=== PATIENT | female | born 1940 | race Caucasian/White ===

== ENCOUNTER 2024-05-31 12:42 | Inpatient (IN) | payer MEDICARE, BC ==
[~2024-05-31] VITALS: Ht 175.3 cm; Wt 72.6 kg
[2024-05-31 14:36] LABS: CALCIUM, SERUM 8.7 mg/dL (8.5-10.1); CARBON DIOXIDE 28 mmol/L (21-32); CHLORIDE 108 mmol/L (98-107); CREATININE 1.8 mg/dL (0.6-1.3); GLUCOSE 86 mg/dL (74-106); POTASSIUM 4.7 mmol/L (3.5-5.1); SODIUM SERUM 141 mmol/L (136-145); UREA NITROGEN, BLOOD 18 mg/dL (7-18)
[2024-05-31 14:42] LABS: ALANINE AMINOTRANSFERASE 18 U/L (12-78); ALBUMIN 3.1 g/dL (3.4-5.0); ALCOHOL, BLOOD < 3 mg/dL (0-10); ALKALINE PHOSPHATASE 160 U/L (46-116); ASPARTATE AMINOTRANSFERASE 14 U/L (15-37); BILIRUBIN,DIRECT 0.1 mg/dL (0.0-0.2); BILIRUBIN,TOTAL 0.4 mg/dL (0.2-1.0); TOTAL PROTEIN, SERUM 6.5 g/dL (6.4-8.2)
[2024-05-31 14:43] LABS: ACETAMINOPHEN <10 ug/ml (10-30)
[2024-05-31 14:59] LABS: BASOPHILS # (AUTO) 0.1 K/uL (0.0-0.2); BASOPHILS % (AUTO) 0.7 % (0.0-2.0); EOSINOPHILS # (AUTO) 0.2 K/uL (0.0-0.7); EOSINOPHILS % (AUTO) 3.7 % (0.0-6.0); HEMATOCRIT 39 % (33-45); HEMOGLOBIN 12.7 g/dL (11.5-14.8); LYMPHOCYTES # (AUTO) 1.9 K/uL (0.8-4.8); LYMPHOCYTES % (AUTO) 28.9 % (20.0-44.0); MEAN CORPUSCULAR HEMOGLOBIN 27 PG (26.0-33.0); MEAN CORPUSCULAR HGB CONC 33 g/dl (31.0-36.0); MEAN CORPUSCULAR VOLUME 83 fL (82-100); MONOCYTES # (AUTO) 0.6 K/uL (0.1-1.30); MONOCYTES % (AUTO) 8.9 % (2.0-12.0); NEUTROPHILS # (AUTO) 3.9 K/uL (1.8-8.9); NEUTROPHILS % (AUTO) 57.8 % (43.0-81.0); PLATELET COUNT (AUTO) 238 K/uL (150-450); RED BLOOD CELL COUNT(AUTO) 4.68 MIL/uL (4.0-5.2); RED CELL DISTRIBUTION WIDTH 18.4 % (11.5-15.0); WHITE BLOOD COUNT (AUTO) 6.7 K/uL (4.3-11.0)
[2024-05-31] MEDS ORDERED: CHOL100062 PO (15:31)
[2024-05-31] MEDS ORDERED: HYDR-4303 PO (15:31)
[2024-05-31] MEDS ORDERED: CYAN50009 PO (15:31)
[2024-05-31] MEDS ORDERED: APIX2.5T PO (15:31)
[2024-05-31] MEDS ORDERED: ACET-2030 PO (15:31)
[2024-05-31] MEDS ORDERED: DONE10TA44 PO (15:31)
[2024-05-31] MEDS ORDERED: OMEP20CA15 PO (15:31)
[2024-05-31] MEDS ORDERED: MEMA10TA PO (15:31)
[2024-05-31] MEDS ORDERED: MAGN400O6 PO (15:31)
[2024-05-31] MEDS ORDERED: METO25TA4 PO (15:31)
[2024-05-31] MEDS ORDERED: FERR325T23 PO (15:31)
[2024-05-31] MEDS ORDERED: ALPR0.25 PO (15:31)
[2024-05-31] MEDS ORDERED: ESCI20TA PO (15:31)
[2024-05-31] MEDS ORDERED: BISA10SU11 RC (15:31)
[2024-05-31] MEDS ORDERED: QUET25TA PO (15:31)
[2024-05-31] MEDS ORDERED: FLEC50TA2 PO (15:31)
[2024-05-31] MEDS ORDERED: NA P133E RC (15:31)
[2024-05-31] MEDS ORDERED: SULF1TAB48 PO (15:31)
[2024-05-31] MEDS ORDERED: IPRA42SP BNOSTRILS (15:31)
[2024-05-31] MEDS ORDERED: PROP15DR EACHEYE (15:31)
[2024-05-31 17:35] LABS: APPEARANCE,URINE CLEAR (CLEAR); BILIRUBIN,URINE NEGATIVE (NEGATIVE); BLOOD, URINE 1+ Ery/uL (NEGATIVE); COLOR,URINE YELLOW (YELLOW); KETONES,URINE NEGATIVE (NEGATIVE); LEUKOCYTE ESTERASE ,URINE 2+ (NEGATIVE); NITRITE, URINE NEGATIVE (NEGATIVE); PROTEIN,URINE NEGATIVE (NEGATIVE); UGLUCOSE NEGATIVE (NEGATIVE); UROBILINOGEN,URINE 0.2 EU/dL (0.2)
[2024-05-31 17:45] LABS: AMPHETAMINE, URINE NEGATIVE (NEGATIVE); BARBITURATE, URINE NEGATIVE (NEGATIVE); BENZODIAZEPINE, URINE NEGATIVE (NEGATIVE); CANNABINOID, URINE NEGATIVE (NEGATIVE); COCCAINE, URINE NEGATIVE (NEGATIVE); OPIATE, URINE NEGATIVE (NEGATIVE); PHENCYCLIDINE SCREEN,URINE NEGATIVE (NEGATIVE)
[2024-05-31 18:36] LABS: ADD URINE CULTURE YES; BACTERIA,URINE Few /HPF (None Seen); SQUAMOUS EPITHELIAL CELL,UR Few /HPF (None Seen)
[2024-05-31] MEDS: CIPROFLOXACIN HCL 250 MG TABLET PO ONE (19:30)
[2024-05-31] MEDS ORDERED: CIPROFLOXACIN HCL 500 MG TABLET ONE (20:11)
[2024-05-31] MEDS ORDERED: ACETAMINOPHEN ES 500 MG TABLET PO PRN (21:00)
[2024-05-31] MEDS ORDERED: BISACODYL SUPP (10 MG) 10 MG/SUPP.RECT SUPP.RECT RC PRN (21:00)
[2024-05-31] MEDS ORDERED: NA PHOS,M-B/NA PHOS,DI-BA 1 EA ENEMA RC PRN (21:00)
[2024-05-31] MEDS ORDERED: MAGNESIUM HYDROXIDE 30 ML UDC PO PRN ×2 (21:00→23:00)
[2024-05-31] MEDS: FLECAINIDE ACETATE 50 MG TABLET PO SCH (21:30)
[2024-05-31] MEDS ORDERED: ACETAMINOPHEN 325 MG TABLET PO PRN (23:00)
[2024-05-31] MEDS ORDERED: MAG HYDROX/AL HYDROX/SIMETH 30 ML UDC PO PRN (23:00)
[2024-05-31] MEDS ORDERED: ZOLPIDEM TARTRATE 5 MG TABLET PO PRN (23:00)
[2024-05-31 23:45] VITALS: BP 147/69; TEMP 97.9; O2SAT 99
[2024-06-01] MEDS ORDERED: FLECAINIDE ACETATE (100 MG) 100 MG TABLET PO ONE
[2024-06-01] MEDS: BLOOD SUGAR DIAGNOSTIC 1 EACH STRIP IN ONE (00:03)
[2024-06-01] MEDS: FLECAINIDE ACETATE (100 MG) 100 MG TABLET PO ONE (00:38)
[2024-06-01 07:22] LABS: BASOPHILS % (AUTO) 0.8 % (0.0-2.0); EOSINOPHILS # (AUTO) 0.2 K/uL (0.0-0.7); EOSINOPHILS % (AUTO) 3.8 % (0.0-6.0); HEMATOCRIT 40 % (33-45); HEMOGLOBIN 12.9 g/dL (11.5-14.8); LYMPHOCYTES # (AUTO) 1.4 K/uL (0.8-4.8); LYMPHOCYTES % (AUTO) 28.2 % (20.0-44.0); MEAN CORPUSCULAR HEMOGLOBIN 27 PG (26.0-33.0); MEAN CORPUSCULAR HGB CONC 32 g/dl (31.0-36.0); MEAN CORPUSCULAR VOLUME 84 fL (82-100); MONOCYTES # (AUTO) 0.5 K/uL (0.1-1.30); MONOCYTES % (AUTO) 10.6 % (2.0-12.0); NEUTROPHILS # (AUTO) 2.9 K/uL (1.8-8.9); NEUTROPHILS % (AUTO) 56.6 % (43.0-81.0); PLATELET COUNT (AUTO) 237 K/uL (150-450); RED BLOOD CELL COUNT(AUTO) 4.77 MIL/uL (4.0-5.2); RED CELL DISTRIBUTION WIDTH 18.9 % (11.5-15.0); WHITE BLOOD COUNT (AUTO) 5.1 K/uL (4.3-11.0)
[2024-06-01 07:37] LABS: POTASSIUM 4.1 mmol/L (3.5-5.1)
[2024-06-01 07:50] LABS: CALCIUM, SERUM 8.8 mg/dL (8.5-10.1); CREATININE 1.6 mg/dL (0.6-1.3)
[2024-06-01] MEDS: PANTOPRAZOLE 40 MG TABLET.DR PO SCH (07:50)
[2024-06-01 08:00] VITALS: BP 133/58; TEMP 97.7; O2SAT 95
[2024-06-01] MEDS: FERROUS SULFATE (325 MG) 325 MG/TAB TABLET PO SCH (08:51)
[2024-06-01] MEDS: CHOLECALCIFEROL 1,000 UNIT TABLET (VIT D3) PO SCH (08:51)
[2024-06-01] MEDS: METOPROLOL SUCCINATE 25 MG TAB.SR.24H PO SCH (08:52)
[2024-06-01] MEDS: APIXABAN 2.5 MG TABLET PO SCH (08:54)
[2024-06-01] MEDS: FLECAINIDE ACETATE (100 MG) 100 MG TABLET PO SCH (08:55)
[2024-06-01] MEDS: IPRATROPIUM BROMIDE 0.06% 15 ML NASPR NS SCH (08:58)
[2024-06-01] MEDS: FLECAINIDE ACETATE (100 MG) 100 MG TABLET ONE (09:00)
[2024-06-01] MEDS: CYANOCOBALAMIN 500 MCG TABLET PO SCH (10:24)
[2024-06-01 16:00] VITALS: BP 129/70; TEMP 97.9; O2SAT 98
[2024-06-01 21:47] VITALS: BP 119/62; TEMP 98.5; O2SAT 96
[2024-06-02] MEDS ORDERED: POLYVINYL ALCOHOL 15 ML BOTTLE EACHEYE PRN (07:30)
[2024-06-02 07:40] LABS: BASOPHILS % (AUTO) 0.6 % (0.0-2.0); EOSINOPHILS # (AUTO) 0.1 K/uL (0.0-0.7); EOSINOPHILS % (AUTO) 1.4 % (0.0-6.0); HEMATOCRIT 41 % (33-45); LYMPHOCYTES # (AUTO) 1.4 K/uL (0.8-4.8); LYMPHOCYTES % (AUTO) 22.1 % (20.0-44.0); MEAN CORPUSCULAR HEMOGLOBIN 27 PG (26.0-33.0); MEAN CORPUSCULAR HGB CONC 32 g/dl (31.0-36.0); MEAN CORPUSCULAR VOLUME 84 fL (82-100); MONOCYTES # (AUTO) 0.7 K/uL (0.1-1.30); MONOCYTES % (AUTO) 10.1 % (2.0-12.0); NEUTROPHILS # (AUTO) 4.3 K/uL (1.8-8.9); NEUTROPHILS % (AUTO) 65.8 % (43.0-81.0); PLATELET COUNT (AUTO) 255 K/uL (150-450); RED BLOOD CELL COUNT(AUTO) 4.87 MIL/uL (4.0-5.2); RED CELL DISTRIBUTION WIDTH 18.1 % (11.5-15.0); WHITE BLOOD COUNT (AUTO) 6.5 K/uL (4.3-11.0)
[2024-06-02 07:48] LABS: ALBUMIN 3.3 g/dL (3.4-5.0); BILIRUBIN,TOTAL 0.5 mg/dL (0.2-1.0); CALCIUM, SERUM 8.9 mg/dL (8.5-10.1); CREATININE 1.9 mg/dL (0.6-1.3); MAGNESIUM 2.1 mg/dL (1.8-2.4); PHOSPHORUS 3.4 mg/dL (2.5-4.9); POTASSIUM 4.2 mmol/L (3.5-5.1); TOTAL PROTEIN, SERUM 6.8 g/dL (6.4-8.2)
[2024-06-02 08:00] VITALS: BP 129/62; TEMP 97.7; O2SAT 98
[2024-06-02] MEDS: VENLAFAXINE XR 37.5 MG CAP.SR.24H PO SCH (08:47)
[2024-06-02 16:00] VITALS: BP 120/65; TEMP 98.1; O2SAT 98
[2024-06-02 20:54] VITALS: BP 130/67; TEMP 97.7; O2SAT 96
[2024-06-03] MEDS: ZOLPIDEM TARTRATE 5 MG TABLET PO PRN (03:31)
[2024-06-03 08:10] VITALS: BP 145/77; TEMP 97.8; O2SAT 96
[2024-06-03 10:10] LABS: PTH, INTACT 22 pg/mL (15-65)
[2024-06-03 16:19] VITALS: BP 114/64; TEMP 98.1; O2SAT 95
[2024-06-03 20:30] VITALS: BP 126/72; TEMP 98; O2SAT 97
[2024-06-04 08:00] VITALS: BP 123/62; TEMP 98.1; O2SAT 96
[2024-06-04 16:00] VITALS: BP 111/50; TEMP 98.7; O2SAT 97
[2024-06-04 21:36] VITALS: BP 123/53; TEMP 98.6; O2SAT 95
[2024-06-05 08:00] VITALS: BP 106/63; TEMP 97.8; O2SAT 96
[2024-06-05 10:12] LABS: *SPE A/G RATIO 0.9 (0.7-1.7); *SPE ALPHA-1-GLOBULIN 0.3 g/dL (0.0-0.4); *SPE ALPHA-2-GLOBULIN 0.8 g/dL (0.4-1.0); *SPE BETA GLOBULIN 1.1 g/dL (0.7-1.3); *SPE GLOBULIN, TOTAL 3.5 g/dL (2.2-3.9); *SPE M-SPIKE Not Observed g/dL (Not Observed); *SPE PROTEIN TOTAL 6.5 g/dL (6.0-8.5); *SPEGAMMA GLOBULIN 1.2 g/dL (0.4-1.8)
[2024-06-05] MEDS: ARIPIPRAZOLE 2 MG TABLET PO SCH (10:26)
[2024-06-05 16:14] VITALS: BP 109/96; TEMP 98.2; O2SAT 94
[2024-06-05 19:36] LABS: APPEARANCE,URINE CLOUDY (CLEAR); BILIRUBIN,URINE NEGATIVE (NEGATIVE); BLOOD, URINE NEGATIVE Ery/uL (NEGATIVE); COLOR,URINE YELLOW (YELLOW); KETONES,URINE TRACE mg/dL (NEGATIVE); LEUKOCYTE ESTERASE ,URINE 1+ (NEGATIVE); NITRITE, URINE NEGATIVE (NEGATIVE); PH,URINE 5.5 (5.0-8.0); PROTEIN,URINE NEGATIVE (NEGATIVE); UGLUCOSE NEGATIVE (NEGATIVE); UROBILINOGEN,URINE 0.2 EU/dL (0.2)
[2024-06-05 19:39] LABS: URINE TOTAL PROTEIN 23.6 mg/dL (0-11.9)
[2024-06-05 20:46] VITALS: BP 148/71; TEMP 98; O2SAT 96
[2024-06-05 20:48] LABS: URINE AMORPHOUS URATE Many /HPF (None Seen)
[2024-06-05 20:51] LABS: ADD URINE CULTURE YES; BACTERIA,URINE Rare /HPF (None Seen); CALCIUM OXALATE CRYSTALS,UR Few /HPF (None Seen); RBC,URINE 0-2 /HPF (0-2); SQUAMOUS EPITHELIAL CELL,UR Rare /HPF (None Seen)
[2024-06-05 21:21] LABS: EOSINOPHIL,URINE None Seen
[2024-06-06 08:00] VITALS: BP 163/80; TEMP 98.1; O2SAT 99
[2024-06-06 08:06] LABS: CALCIUM, SERUM 9.2 mg/dL (8.5-10.1); CREATININE 1.3 mg/dL (0.6-1.3); POTASSIUM 3.7 mmol/L (3.5-5.1)
[2024-06-06 08:22] LABS: BASOPHILS % (AUTO) 0.6 % (0.0-2.0); EOSINOPHILS # (AUTO) 0.3 K/uL (0.0-0.7); EOSINOPHILS % (AUTO) 3.8 % (0.0-6.0); HEMATOCRIT 41 % (33-45); HEMOGLOBIN 12.8 g/dL (11.5-14.8); LYMPHOCYTES # (AUTO) 1.7 K/uL (0.8-4.8); LYMPHOCYTES % (AUTO) 24.5 % (20.0-44.0); MEAN CORPUSCULAR HEMOGLOBIN 27 PG (26.0-33.0); MEAN CORPUSCULAR HGB CONC 32 g/dl (31.0-36.0); MEAN CORPUSCULAR VOLUME 84 fL (82-100); MONOCYTES # (AUTO) 0.7 K/uL (0.1-1.30); MONOCYTES % (AUTO) 10.2 % (2.0-12.0); NEUTROPHILS # (AUTO) 4.3 K/uL (1.8-8.9); NEUTROPHILS % (AUTO) 60.9 % (43.0-81.0); PLATELET COUNT (AUTO) 230 K/uL (150-450); RED BLOOD CELL COUNT(AUTO) 4.81 MIL/uL (4.0-5.2); RED CELL DISTRIBUTION WIDTH 18.3 % (11.5-15.0)
[2024-06-06 16:00] VITALS: BP 142/61; TEMP 97.9; O2SAT 96
[2024-06-06 20:00] VITALS: BP 145/71; TEMP 98.2; O2SAT 96
[2024-06-06] MEDS: MIRTAZAPINE 15 MG TABLET PO SCH (21:19)
[2024-06-07 08:00] VITALS: BP 107/59; TEMP 97.9; O2SAT 98
[2024-06-07] MEDS: VENLAFAXINE XR 37.5 MG CAP.SR.24H PO SCH (08:43)
[2024-06-07] MEDS ORDERED: VENLAFAXINE XR 37.5 MG CAP.SR.24H PO SCH (09:00)
[2024-06-07] MEDS ORDERED: CIPROFLOXACIN HCL 250 MG TABLET PO SCH (09:00)
[2024-06-07 16:00] VITALS: BP 119/60; TEMP 97.4; O2SAT 98
[2024-06-07 20:00] VITALS: BP 138/70; TEMP 97.8; O2SAT 97
[2024-06-08 08:00] VITALS: BP 106/67; TEMP 98.3; O2SAT 100
[2024-06-08] MEDS ORDERED: CYANOCOBALAMIN 500 MCG TABLET PO SCH (09:00)
[2024-06-08] MEDS: CYANOCOBALAMIN 100 MCG TABLET PO SCH (10:00)
[2024-06-08 16:00] VITALS: BP 126/66; TEMP 98; O2SAT 100
[2024-06-08 20:00] VITALS: BP 150/60; TEMP 97.7; O2SAT 98
[2024-06-08 21:04] VITALS: BP 150/60; TEMP 97.7; O2SAT 98
[2024-06-09 08:00] VITALS: BP 111/68; TEMP 98.7; O2SAT 98
[2024-06-09 16:00] VITALS: BP 142/68; TEMP 98; O2SAT 95
[2024-06-09] MEDS: HYDROCODONE/APAP 5/325MG TABLET PO PRN (16:24)
[2024-06-09 20:39] VITALS: BP 133/68; TEMP 97.6; O2SAT 97
[2024-06-10 08:39] VITALS: BP 114/61; TEMP 98.6; O2SAT 97
[2024-06-10 16:26] VITALS: BP 121/63; TEMP 98.6; O2SAT 98
[2024-06-10 21:26] VITALS: BP 117/59; TEMP 98.7; O2SAT 98
[2024-06-11 08:00] VITALS: BP 106/56; TEMP 98.7; O2SAT 97
[2024-06-11 16:00] VITALS: BP 120/52; TEMP 98.6; O2SAT 95
[2024-06-11 20:02] VITALS: BP 135/56; TEMP 98.5; O2SAT 95
[2024-06-12 08:00] VITALS: BP 148/65; TEMP 97.8; O2SAT 98
[2024-06-12 08:18] VITALS: BP 132/71
== END 2024-06-12 13:41 | DRG 885 ==
LOC: ER 12:54 → GPS 20:26
PROVIDERS: ADMIT Psychiatry & Neurology Psychiatry; ATTEND Nurse Practitioner Family
DX: F39 Unspecified mood [affective] disorder (principal); N18.9 Chronic kidney disease, unspecified; N17.0 Acute kidney failure with tubular necrosis; F03.93 Unspecified dementia, unspecified severity, with mood disturbance; F03.92 Unspecified dementia, unspecified severity, with psychotic disturbance; F33.9 Major depressive disorder, recurrent, unspecified; F03.918 Unspecified dementia, unspecified severity, with other behavioral disturbance; F29 Unspecified psychosis not due to a substance or known physiological condition; E86.9 Volume depletion, unspecified; G47.00 Insomnia, unspecified; K21.9 Gastro-esophageal reflux disease without esophagitis; I48.91 Unspecified atrial fibrillation; M19.90 Unspecified osteoarthritis, unspecified site; Z66 Do not resuscitate; Z79.01 Long term (current) use of anticoagulants; Z88.0 Allergy status to penicillin; Z99.3 Dependence on wheelchair; Z20.822 Contact with and (suspected) exposure to COVID-19; Z73.6 Limitation of activities due to disability; E83.9 Disorder of mineral metabolism, unspecified; I12.9 Hypertensive chronic kidney disease with stage 1 through stage 4 chronic kidney disease, or unspecified chronic kidney disease; Z79.899 Other long term (current) drug therapy
CPT/HCPCS: 36415; 73610-TC; 73630-TC; 76770-TC; 80048-TC; 80053-TC; 80061-TC; 80076-TC; 81001; 82550-TC; 82570-TC; 82962-TC; 83735-TC; 83970; 84100-TC; 84155; 84165; 84300-TC; 85025-TC; 87081-TC; 87086-TC; 97110-TC; 97116-TC; 97530-TC; 97535-TC; G0480